=== PATIENT | female | born 1975 ===

== ENCOUNTER 2018-04-23 09:57 | Day surgery (SDC) | payer OTHER ==
[2018-04-23] MEDS ORDERED: NEXIUM 24HR20 M1 PO (15:01)
[2018-04-23] MEDS ORDERED: CARAFATE1 GM PO (15:01)
== END 2018-04-23 16:25 | disposition home or self-care (01) ==
LOC: AMB-ENDOS 09:57
DX: D13.1 Benign neoplasm of stomach (principal); K29.60 Other gastritis without bleeding

== ENCOUNTER 2020-01-07 10:25 | Outpatient (CLI) | payer OTHER ==
[~2020-01-07 10:25] MED LIST: CARAFATE1 GM PO; NEXIUM 24HR20 M1 PO
== END 2020-01-07 10:44 | disposition home or self-care (01) ==
LOC: RAD 10:25
PROVIDERS: ATTEND General Practice
DX: M54.5 Low back pain (principal)